=== PATIENT | female | born 1995 | race Caucasian/White ===

== ENCOUNTER 2018-11-11 18:55 | Emergency (ER) | payer OTHER ==
[~2018-11-11] VITALS: Ht 160 cm; Wt 70.5 kg
[2018-11-11] MEDS ORDERED: ONDANSETRON 4MG/2ML VIAL (J2405) IV ONE (19:30)
[2018-11-11] MEDS ORDERED: NS 500 ML IV ONE (19:30)
[2018-11-11] MEDS ORDERED: KETOROLAC 30 MG/ML VIAL (J1885) IV ONE (19:30)
[2018-11-11 20:08] LABS: BASO % 0.3 % (0.0-1.0); EOS # 0.1 10^3/uL (0.0-0.50); EOS % 1.4 % (0.0-3.0); HEMATOCRIT 39.2 % (36.0-47.0); HEMOGLOBIN 12.7 g/dl (12.0-15.5); LYMPH # 2.4 10^3/uL (1.5-6.5); LYMPH % 35.2 % (24.0-44.0); MEAN CORPUSCULAR HEMOGLOBIN 29.1 pg (27.0-33.0); MEAN CORPUSCULAR HGB CONC 32.4 g/dl (32.0-36.5); MEAN CORPUSCULAR VOLUME 89.9 fl (80.0-96.0); MONO # 0.3 10^3/uL (0.0-0.8); MONO % 4.6 % (0.0-5.0); NEUTROPHILS % 58.4 % (36.0-66.0); PLATELET COUNT, AUTOMATED 213 10^3/uL (150-450); RED BLOOD COUNT 4.36 10^6/uL (4.00-5.40); WHITE BLOOD COUNT 6.9 10^3/uL (4.0-10.0)
[2018-11-11 20:25] LABS: ALBUMIN 3.8 GM/DL (3.2-5.2); ALT/SGPT 18 U/L (12-78); BILIRUBIN,DIRECT < 0.1 MG/DL (0.0-0.2); BILIRUBIN,TOTAL 0.5 MG/DL (0.2-1.0); BLOOD UREA NITROGEN 8 MG/DL (7-18); CALCIUM LEVEL 8.8 MG/DL (8.5-10.1); CARBON DIOXIDE LEVEL 27 MEQ/L (21-32); CHLORIDE LEVEL 110 MEQ/L (98-107); CREATININE FOR GFR 0.69 MG/DL (0.55-1.30); GLUCOSE, FASTING 89 MG/DL (70-100); LIPASE 243 U/L (73-393); POTASSIUM SERUM 3.9 MEQ/L (3.5-5.1); SODIUM LEVEL 142 MEQ/L (136-145)
[2018-11-11] MEDS ORDERED: ISOVUE-370 76% 125ML VIAL (Q9967 PER ML) As Ordered ONE (20:31)
[2018-11-11 20:35] LABS: HCG, SERUM QUALITATIVE NEGATIVE (NEGATIVE)
--- NOTE | 2018-11-11 21:28 | REPVR ---
EXAM: CT Abdomen and Pelvis With Contrast EXAM DATE/TIME: 11/11/18 (8:43pm) CLINICAL HISTORY: 22 year old female with periumbilical / RLQ pain TECHNIQUE: Axial computed tomography images of the abdomen and pelvis with intravenous contrast. All CT scans at this facility use at least one of these dose optimization techniques: automated exposure control; mA and/or kV adjustment per patient size (includes targeted exams where dose is matched to clinical indication); or iterative reconstruction. Coronal and sagittal reformatted images were created and reviewed. CONTRAST: Contrast Material: 100 ml of Isovue 370. Contrast Route: IV. COMPARISON: No relevant prior studies available FINDINGS: Lower thorax: No acute findings. No pleural effusions. ABDOMEN: Liver: Normal. No solid mass. Gallbladder and bile ducts: The gallbladder is not clearly identified. No ductal dilatation. Pancreas: Normal. No ductal dilation. Spleen: Borderline splenomegaly. Adrenals: Normal. No mass. Kidneys and ureters: Normal. No hydronephrosis. Stomach and bowel: Normal. No bowel obstruction. No mucosal thickening. Appendix: No evidence of appendicitis. PELVIS: Bladder: Unremarkable as visualized. Reproductive: Unremarkable as visualized. ABDOMEN and PELVIS: Intraperitoneal space: Normal. No free air. No significant fluid collection. Bones/joints: No acute fracture nor dislocation. Soft tissues: Unremarkable. Vasculature: Normal. No abdominal aortic aneurysm. Lymph nodes: Normal. No enlarged lymph nodes. Other findings: Navel piercing. IMPRESSION: No acute findings. Perhaps previous cholecystectomy (the gallbladder is not clearly identified). Needs correlation. Borderline splenomegaly. Electronically signed by: Kim Lemus On 11/11/2018 21:28:30 PM
[2018-11-11] MEDS ORDERED: DICYCLOMINE 10 MG CAP PO ONE (22:15)
--- NOTE | 2018-11-11 22:16 | REPVR ---
EXAM: US Pelvis Complete (transabdominal and transvaginal) EXAM DATE/TIME: 11/11/18 (9:49pm) CLINICAL HISTORY: 22 year old female with RLQ / pelvic pain TECHNIQUE: Real-time transabdominal and transvaginal pelvic ultrasound with image documentation. Complete examination. COMPARISON: CT ABDOMEN PELVIS of 11/11/18 FINDINGS: The LMP is reported to be: 10/14/18 The uterus is anteverted, measuring 7.6 x 2.4 x 4.3 cm in dimensions. No uterine mass is seen. The endometrium measures 6 mm in thickness. The right ovary is not clearly visualized (obscured by bowel gas). The left ovary measures 2.1 x 1.3 x 2.1 cm in size. The left ovary shows no evidence of torsion on Doppler evaluation. No free pelvic fluid is seen. No solid adnexal masses. IMPRESSION: No acute pathology. The uterus and left ovary are unremarkable. The right ovary is obscured by bowel gas. Electronically signed by: Kim Lemus On 11/11/2018 22:15:55 PM
[2018-11-11] MEDS ORDERED: MAGN1SOL2 PO (22:42)
[2018-11-11] MEDS ORDERED: SIME180C PO (22:43)
[2018-11-11 22:53] VITALS: BP 112/64
== END 2018-11-11 22:56 | disposition home or self-care (01) ==
LOC: M ED 18:55
DX: K59.00 Constipation, unspecified (principal)
CPT/HCPCS: 74177; 76830; 76856; 80048; 80076; 81001; 81025; 83690; 84703; 85025; 93976; 96361; 96374; 96375; 99284; J1885; J2405; Q9967